=== PATIENT | male | born 1985 | race Caucasian/White ===

== ENCOUNTER 2017-12-07 10:52 | Emergency (ER) | payer MEDICAID ==
[~2017-12-07] VITALS: Ht 167.6 cm; Wt 117.7 kg
[2017-12-07 10:59] VITALS: Ht 167.6 cm; Wt 117.7 kg
[2017-12-07 12:32] VITALS: BP 140/90
== END 2017-12-07 12:32 | disposition home or self-care (01) ==
LOC: ED 10:52
DX: L02.213 Cutaneous abscess of chest wall (principal)
CPT/HCPCS: J0696; J2001

== ENCOUNTER 2018-10-13 20:19 | Emergency (ER) | payer MEDICAID ==
[~2018-10-13] VITALS: Ht 170.2 cm; Wt 124.7 kg
[2018-10-13 20:48] VITALS: Ht 170.2 cm; Wt 124.7 kg
[2018-10-13 22:32] VITALS: BP 161/88
== END 2018-10-13 22:32 | disposition home or self-care (01) ==
LOC: ED 20:19
DX: L02.213 Cutaneous abscess of chest wall (principal)
CPT/HCPCS: J2001

== ENCOUNTER 2018-10-15 08:20 | Emergency (ER) | payer MEDICAID ==
[~2018-10-15] VITALS: Ht 170.2 cm; Wt 123.8 kg
[2018-10-15 08:30] VITALS: BP 181/105; Ht 170.2 cm; Wt 123.8 kg
== END 2018-10-15 09:03 | disposition home or self-care (01) ==
LOC: ED 08:20
DX: Z48.00 Encounter for change or removal of nonsurgical wound dressing (principal)